=== PATIENT | female | born 1995 | race Hispanic/Latino ===

== ENCOUNTER 2022-11-06 16:58 | Emergency (ER) | payer OTHER ==
[~2022-11-06] VITALS: Ht 154.9 cm; Wt 66.5 kg
[2022-11-06] MEDS ORDERED: PREDNISONE 20 MG TAB PO ONE (17:30)
[2022-11-06] MEDS ORDERED: FAMOTIDINE 20 MG TAB PO ONE (17:30)
[2022-11-06] MEDS ORDERED: PREDNISONE20 MG PO (17:39)
[2022-11-06] MEDS ORDERED: PEPCID20 MG PO (17:39)
== END 2022-11-06 18:02 | disposition home or self-care (01) ==
LOC: FSED 17:04
DX: R21 Rash and other nonspecific skin eruption (principal); T78.40XA Allergy, unspecified, initial encounter; R50.9 Fever, unspecified
CPT/HCPCS: 99283; J7512

== ENCOUNTER 2023-01-25 11:02 | Emergency (ER) | payer OTHER ==
[~2023-01-25] VITALS: Ht 154.9 cm; Wt 66.2 kg
[~2023-01-25 11:02] MED LIST: PEPCID20 MG PO; PREDNISONE20 MG PO
[2023-01-25] MEDS ORDERED: FAMOTIDINE 20 MG/2 ML VIAL IV ONE (11:36)
[2023-01-25] MEDS ORDERED: KETOROLAC TROMETHAMINE 30 MG/ML VIAL ONE (11:36)
[2023-01-25] MEDS ORDERED: SODIUM CHLORIDE 0.9% 1000ML 1,000 ML ONE (11:36)
[2023-01-25] MEDS ORDERED: ONDANSETRON HCL INJ 2MG/ML 2ML 2 MG/ML VIAL ONE (11:36)
[2023-01-25 11:40] VITALS: O2SAT 98
[2023-01-25] MEDS ORDERED: ONDANSETRON HCL INJ 2MG/ML 2ML 2 MG/ML VIAL IV STA (11:45)
[2023-01-25] MEDS ORDERED: SODIUM CHLORIDE 0.9% 1000ML 1,000 ML IV ONE (11:45)
[2023-01-25] MEDS ORDERED: KETOROLAC TROMETHAMINE 30 MG/ML VIAL IV STA (11:45)
[2023-01-25] MEDS ORDERED: FAMOTIDINE 20 MG/2 ML VIAL IV STA (11:45)
[2023-01-25] MEDS ORDERED: ONDANSETRON ODT4 MG PO (12:44)
[2023-01-25] MEDS ORDERED: FAMOTIDINE20 MG PO (12:45)
[2023-01-25] MEDS ORDERED: LEVSIN-SL0.125 MG SL (12:47)
[2023-01-25 13:07] VITALS: BP 110/59; PULSE 78; RESP 17
== END 2023-01-25 13:08 | disposition home or self-care (01) ==
LOC: FSED 11:25
DX: R11.2 Nausea with vomiting, unspecified (principal); K29.70 Gastritis, unspecified, without bleeding; R10.13 Epigastric pain; R10.30 Lower abdominal pain, unspecified
CPT/HCPCS: 80048; 80076; 81003; 81025; 85025; 96374; 96375; 96376; 99283; J1885; J2405; J7030